=== PATIENT | female | born 1985 | race Caucasian/White ===

== ENCOUNTER 2017-12-19 13:00 | Inpatient (IN) ==
[2017-12-19] MEDS ORDERED: Naloxone 0.4 MG/ML INJ IVP PRN (13:38)
[2017-12-19] MEDS ORDERED: *HR* Nalbuphine 10 MG/ML AMPUL IVP PRN (13:38)
[2017-12-19] MEDS ORDERED: Famotidine 20 MG/2 ML VIAL IVP PRN (13:38)
[2017-12-19] MEDS ORDERED: Ringers Solution, Lactated 1,000 ML IVC SCH (13:45)
[2017-12-19] MEDS ORDERED: Oxytocin 20 units/ LR 1000 mL 20 UNIT/1,000 ML BAG IVC SCH (13:45)
--- NOTE | 2017-12-19 13:49 | OB/GYN History & Physical ---
Date of Encounter: 12/19/17 Time of Encounter: 13:46 History of Present Illness Chief complaint: 30+5wk IUFD HPI: Ms. Luna is a 32yo at 30+5wks GA who presents to [place] for IOL for diagnosed IUFD in office today. [facility] wtih Dr. Espinoza. Normal to date. Reported decreased FM over the weekend. Presented to office for US this AM, found to have no heart beat. Patient and FOB presented to office and discussed options. Desired to deliver as soon as possible, desires . H&P was performed by Dr. Espinoza in office and is in pateint chart. Hx of one miscarriage <12wks, and another at term ~10 years ago. VSS, HDS, afebrile. WIll plan for villareal/pitocin induction. Will discuss paperwork with patient. MD YUDELKA Medications and Allergies 3 Allergy/AdvReac Type Severity Reaction Status Date / Time No Known Allergies Allergy Verified 12/19/17 13:45 Results All other labs normal. - VTE Reasons for not Prescribing Prophylaxis: Treatment not Indicated - Low risk for VTE
[2017-12-19 14:01] LABS: Basophils % 0.2 %; Eosinophils # 0.2 K/mcL (0.0-0.6); Eosinophils % 2.2 %; Hematocrit 32.7 % (35.3-44.9); Hemoglobin 11.3 g/dL (11.5-15.4); Immature Granulocytes % 0.2 % (0-4); Lymphocytes # 1.5 K/mcL (0.6-4.6); Lymphocytes % 16.6 %; Mean Corpuscular HGB Conc 34.6 g/dL (31.6-35.5); Mean Corpuscular Volume 86.7 fL (83.0-100.0); Mean Platelet Volume 10.6 fL (9.4-12.4); Monocytes # 0.5 K/mcL (0.0-1.3); Monocytes % 5.2 %; Neutrophils # 6.9 K/mcL (1.6-8.9); Platelet Count 252 K/mcL (140-400); Red Blood Count 3.77 M/mcL (3.82-4.97); Red Cell Distribution Width 12.6 % (11.5-14.5); Segmented Neutrophils % 75.6 %
[2017-12-19] MEDS: Acetaminophen 325 MG TABLET PO ONE ×2 (14:55→20:00)
[2017-12-19 15:34] LABS: Amphetamine Screen,Urine Negative ng/mL (Cutoff=1000); Barbiturate Screen,Urine Negative ng/mL (Cutoff=200); Benzodiazepines Screen,Urine Negative ng/mL (Cutoff=200); Cannabinoid Screen,Urine Negative ng/mL (Cutoff = 50); Cocaine Screen,Urine Negative ng/mL (Cutoff= 300); Opiate Screen,Urine Negative ng/mL (Cutoff=300); Phencyclidine Screen,Urine Negative ng/mL (Cutoff=25)
[2017-12-19] MEDS ORDERED: miSOPROStol 25 MCG TABLET PO PRN (19:02)
[2017-12-19] MEDS ORDERED: Acetaminophen 325 MG TABLET PO ONE (19:51)
[2017-12-20] MEDS ORDERED: miSOPROStol 25 MCG TABLET PO ONE (00:18)
[2017-12-20] MEDS ORDERED: Acetaminophen 325 MG TABLET PO ONE (04:12)
--- NOTE | 2017-12-20 05:42 | Event Note ---
Date of Encounter: 12/20/17 Time of Encounter: 05:00 32yo at 30+6wks GA who presents for IOL for IUFD. Patient is now s/p two rounds of buccal misoprostol, and is now started on IV pitocin. SVE: ft/60/-2 Attempted cervical villareal placement however unable to be placed (external 1cm, internal is <FT). Will recheck patient in 2 hours and re-attempt villareal placement. Will continue with IV pitocin. Reassured patient and patient . Discussed autopsy versus home. Pastor Antonino Ngo (family friend) will be stopping by today to speak with both of them. Plan to recheck at 0730 for villareal placement. MD YUDELKA
--- NOTE | 2017-12-20 08:36 | Event Note ---
Date of Encounter: 12/20/17 Time of Encounter: 08:35 Robert placement at 0800, IN pitocin at 6mU Will continue to increase pit OK for regular diet. MD YUDELKA
--- NOTE | 2017-12-20 08:49 | Anesthesia Evaluation PreOp ---
Date of Encounter: 12/20/17 Time of Encounter: 07:19 - Past History Planned Operation: PETROS Cardiac History: Denies any Significant Hx Pulmonary History: Denies Any Significant HX TRAM DRIVER History: Denies Any Significant HX Other Medical History: Denies Any Significant HX Anesthesia History: No Prior Anesthetic Complications Alcohol Use: none Drug use: none Medications and Allergies Vitamins 1 / PO DAILY 12/19/17 [History] 3 Allergy/AdvReac Type Severity Reaction Status Date / Time No Known Allergies Allergy Verified 12/19/17 13:45 - Meds/Allergy Pre-op Review Medications Reviewed: Yes Allergies Reviewed: Yes Beta Blockers on Current Med List: No Anesthesia Results - Labs 12/19/17 13:42 Anesthesia Exam - HEENT Pupil (Motor): Pupils equal Mallampati: II Teeth: Normal Oral Opening: Greater than 3 - TRAM DRIVER LOC: Oriented TRAM DRIVER Motor: Normal RUE, Normal LUE, Normal RLE, Normal LLE, Normal Face TRAM DRIVER Sensory: Normal: RUE, LUE, RLE, LLE, Face - Cardiac Rhythm: Regular Murmur: None JVD: No Carotid Bruit: No - Pulmonary Breath Sounds: bilateral Clear Respiratory Effort: Symmetrical Anesthesia Assess/Plan ASA Score: 2 Modified [place] Scale for Level of Consciousness: Cooperative, oriented, and tranquil Anesthetic Plan: Regional Autologous Blood: No Monitoring Plan: Standard Monitors Anes Supervising Prov Stmt: 0719 pt assessment completed. risks benefits explained for PETROS pt agrees. unsure if she will desire epidural, however consent obtained at this time.
[2017-12-20] MEDS ORDERED: Epidural Premix (fent/bupiv) 110 ML EP SCH (09:45)
[2017-12-20] MEDS ORDERED: Lidocaine -MPF 1% 5 ML AMPUL ONE (14:54)
[2017-12-20] MEDS ORDERED: Bupivacaine-MPF 0.25% 10 ML VIAL ONE (14:54)
--- NOTE | 2017-12-20 15:51 | Anesthesia Procedures ---
Date of Encounter: 12/20/17 Time of Encounter: 15:00 Procedures: Anesthesia - Epidural/Spinal Patient ID/Chart reviewed: Yes Patient examined: Yes OB Eval: Gestational age: 30 week Demise OB Eval: : 3 OB Eval: Hx Para: 1 OB Eval: Dilated at (cm): 3 OB Eval: Contractions: Non-stressed pattern Consent Obtained: Yes Supplemental Oxygen: None/Room Air Patient position: upright Local Anesthetic: Lidocaine 1% Touhy Needle Gauge: 19 Touhy Needle Depth (cm): 4 Catheter Depth at Skin (cm): 4 Loading Dose: 0.25% Marcaine (mls): 10 Loading Dose Administered: Thru Touhy Needle Infusion Med: 0.125% Bupivacaine w/ 2 mcg/ml Fentanyl Infusion Rate (mls/hr): [address]: Tegaderm Interspace Used: L4-L5 Loss of Resistance (WHIT): Yes Blood: No CSF: No Paresthesia: No
[2017-12-20] MEDS ORDERED: Lidocaine/EPI 1:200k 2% PF 20 ML VIAL ONE (17:48)
--- NOTE | 2017-12-20 19:30 | OB Labor Progress Note ---
Date of Encounter: 12/20/17 Time of Encounter: 19:29 Labor Progress Note - Subjective Subjective: Pt comfortable with epidural - Cervix Cervix: 5-6/90/-2 - Heart Tones Heart Tones: absent - Interventions Interventions: AROM blood tinged fluid - Plan Plan: Expect
[2017-12-20] MEDS ORDERED: Ondansetron 4 MG/2 ML VIAL ONE (20:47)
--- NOTE | 2017-12-20 21:02 | Event Note ---
Date of Encounter: 12/20/17 Time of Encounter: 20:30 At bedside to evaluate patient s/p of 30+6wk GA IUFD. Baby was delivered rapidly following AROM where patient progressed from 5-6CM/BBOW, to 10cm with the urge to push. Placenta was left in place and intact while patient was able to console her baby. Patient felt cramping and felt very nauseated. As we re-prepped the bed for delivery of the placenta, the patient delivered the placenta spontaneously after one aggressive cough. The placenta was grossly examined, with normal cord insertion. Cotyledons were intact, no abruption was appreciated. Cord appeared normal, despite its long length. Cord was with 3 vessels. I then cautiously performed a bimanual examination, no lesion(S) were appreciated from delivery. Minimal clots were removed from the fundus. A subsequent TAUS was performed to confirm no products of conception were retained. The TAUS revealed a thinned cavity and normal fundus. Placenta is to be sent to pathology for evaluation: diagnosis being 30wk IUFD. MD YUDELKA
--- NOTE | 2017-12-20 23:15 | OB/GYN Procedure Note ---
Delivery - Delivery Date: 12/20/17 Provider: Thad Plascencia Intrapartum events: demise Delivery induction: misoprostol Delivery augmentation: rupture of membranes, pitocin Delivery monitor: external uterine Anesthesia: epidural Quantitated Blood Loss: 50 - (s) A Delivery Date: 12/20/17 Delivery Time: 19:49 Gender: Male Viability: Nonviable Weight Gram: 1.55 kg at 1 minute: 0 at 5 mins: 0 Shoulder Dystocia: not encountered Placenta: spontaneous - Repair Laceration Description: None - Disposition Mom disposition: stable in LDR - Comments Comments: Patient is status post precipitous delivery of demise at 31 weeks gestation from vertex presentation. Infant was delivered without incident over intact perineum. There were no obvious anomalies and was confirmed to be male. Specifically there was no evidence of cord accident. Perineum was intact. Estimated blood loss 50 mL. Attempt Tomei departed room mother was stable with minimal bleeding placenta remained intact within the uterus.
[2017-12-20] MEDS ORDERED: Acetaminophen 325 MG TABLET PO PRN (23:18)
[2017-12-20] MEDS ORDERED: Measles/Mumps/Rubella Vacc 0.5 ML VIAL SQ PRN (23:18)
[2017-12-20] MEDS ORDERED: Oxytocin 20 units/ LR 1000 mL 20 UNIT/1,000 ML BAG IVC SCH (23:30)
[2017-12-21] MEDS: Ibuprofen 600 MG TABLET PO PRN ×2 (00:28→11:46)
[2017-12-21 07:00] LABS: Basophils % 0.2 %; Eosinophils # 0.1 K/mcL (0.0-0.6); Eosinophils % 0.9 %; Hematocrit 29.8 % (35.3-44.9); Immature Granulocytes % 0.4 % (0-4); Lymphocytes % 14.3 %; Mean Corpuscular HGB Conc 33.6 g/dL (31.6-35.5); Mean Corpuscular Hemoglobin 29.8 pg (28.0-33.3); Mean Corpuscular Volume 88.7 fL (83.0-100.0); Mean Platelet Volume 10.9 fL (9.4-12.4); Monocytes # 0.7 K/mcL (0.0-1.3); Monocytes % 5.1 %; Neutrophils # 11.1 K/mcL (1.6-8.9); Platelet Count 217 K/mcL (140-400); Red Blood Count 3.36 M/mcL (3.82-4.97); Red Cell Distribution Width 12.7 % (11.5-14.5); Segmented Neutrophils % 79.1 %
[2017-12-21] MEDS ORDERED: Prenatal Vit/FA 1 EACH TABLET PO SCH (09:00)
[2017-12-21 10:57] VITALS: BP 116/78
--- NOTE | 2017-12-21 11:59 | Discharge Summary ---
Date of Encounter: 12/21/17 Time of Encounter: 11:00 - Discharge Medications Prescriptions: Ondansetron ODT [Zofran ODT] 4 mg PO Q8HR PRN #20 tab.rapdis PRN Reason: Nausea Docusate [Colace] 100 mg PO BID #60 capsule Ibuprofen 200 mg PO Q4-6H PRN #60 tablet PRN Reason: cramp Home Medications: Vitamins 1 / PO DAILY 12/19/17 [History] Docusate [Colace] 100 mg PO BID #60 capsule 12/21/17 [Rx] Ibuprofen 200 mg PO Q4-6H PRN #60 tablet 12/21/17 [Rx] Ondansetron ODT [Zofran ODT] 4 mg PO Q8HR PRN #20 tab.rapdis 12/21/17 [Rx] Allergies/Adverse Reactions: 3 Allergy/AdvReac Type Severity Reaction Status Date / Time No Known Allergies Allergy Verified 12/19/17 13:45 Data Procedures and tests throughout hospitalization: Laboratory Tests 12/19/17 12/19/17 12/19/17 13:40 13:42 14:55 WBC 9.2 RBC 3.77 L Hgb 11.3 L Hct 32.7 L MCV 86.7 MCH 30.0 MCHC 34.6 RDW 12.6 Plt Count 252 MPV 10.6 Immature Gran % 0.2 Seg Neutrophils % 75.6 Lymphocytes % 16.6 Monocytes % 5.2 Eosinophils % 2.2 Basophils % 0.2 Neutrophils # 6.9 Lymphocytes # 1.5 Monocytes # 0.5 Eosinophils # 0.2 Basophils # 0.0 Urine Opiates Screen Negative Ur Barbiturates Screen Negative Ur Phencyclidine Scrn Negative Ur Amphetamines Screen Negative U Benzodiazepines Scrn Negative Urine Cocaine Screen Negative U Marijuana (THC) Screen Negative Ur Drug Screen Interp See Below Blood Type O POSITIVE 12/21/17 06:19 WBC 14.0 H D RBC 3.36 L Hgb 10.0 L Hct 29.8 L MCV 88.7 MCH 29.8 MCHC 33.6 RDW 12.7 Plt Count 217 MPV 10.9 Immature Gran % 0.4 Seg Neutrophils % 79.1 Lymphocytes % 14.3 Monocytes % 5.1 Eosinophils % 0.9 Basophils % 0.2 Neutrophils # 11.1 H Lymphocytes # 2.0 Monocytes # 0.7 Eosinophils # 0.1 Basophils # 0.0 Urine Opiates Screen Ur Barbiturates Screen Ur Phencyclidine Scrn Ur Amphetamines Screen U Benzodiazepines Scrn Urine Cocaine Screen U Marijuana (THC) Screen Ur Drug Screen Interp Blood Type Labs on day of discharge: Labs from last 24 hours 12/21/17 06:19 WBC 14.0 H D RBC 3.36 L Hgb 10.0 L Hct 29.8 L MCV 88.7 MCH 29.8 MCHC 33.6 RDW 12.7 Plt Count 217 MPV 10.9 Immature Gran % 0.4 Seg Neutrophils % 79.1 Lymphocytes % 14.3 Monocytes % 5.1 Eosinophils % 0.9 Basophils % 0.2 Neutrophils # 11.1 H Lymphocytes # 2.0 Monocytes # 0.7 Eosinophils # 0.1 Basophils # 0.0 Date of admission: 12/19/17 13:19 Primary care physician: Dee Christine MD Consults: 12/20/17 23:18 Consult to Pattern Puncher [CONS] Routine (Cancelled) Comment: Vaginal delivery, consult needed Discharging clinician: Ana Gomez Anticipated date of discharge: 12/21/17 - Patient Status Disposition: Home, Self-Care Condition: Good Functional capacity at discharge: independent ambulation Overall status at discharge: patient is progressing back to baseline - Discharge Instructions Instructions: Depression (GEN), Perineal Care (GEN) Follow Up With: Dee Christine MD [Primary Care Provider] - - Diet and Activity Activity: resume usual activities as tolerated Diet: advance to your usual diet 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 Attestation: Total time spent providing and/or coordinating discharge services: Exam - Constitutional Vitals: Temp Pulse Resp BP Pulse Ox 98.3 F 82 16 116/78 98 12/21/17 09:50 12/21/17 09:50 12/21/17 09:50 12/21/17 09:50 12/21/17 04:33 General appearance IM: A&O X 3, pleasant, no acute distress - Respiratory Respiratory exam: Present: CTAB - Cardiovascular Cardiovascular exam IM: Present: RRR - GI/Abdominal GI/Abdominal exam IM: normal bowel sounds, no peritoneal signs - Rectal Rectal exam: deferred - Uterine Tone: Firm Uterus Position: 2 Fingers Below Umbilicus - Extremities Exam Extremities exam IM: Present: radial pulses palpable and symmetrical - VTE Reasons for not Prescribing Prophylaxis: Treatment not Indicated - Low risk for VTE Documentation of Mechanical Device: Intermittent pneumatic compression device Deep Vein Thrombosis/Pulmonary Embolism Present on Admission: No - Attending Attestation +Dr. Gomez was present at the time of discharge, as the patient was DC'd to home on PPD#1 s/p at 30+6wks GA for an IUFD. Patient was admitted to L&D on 12/19/2017 for an IOL for a diagnosed IUFD at 30+ 5wks GA. The patient reported decreased FM over the weekend and presented to her [facility] on Tuesday and was found to have IUFD. She was sent to [facility] for an IOL. She required two buccal misoprostols, and was then started on IV pitocin. Early AM on 12/20, a cervical villareal catheter was placed, and we continued the patient on IV pitocin. The cervical villareal was then spontaneously removed, at which point we continued the pitocin. At 5-6cm/BBOW, the patient was AROM'd, and within 20minutes following AROM - the patient was complete with the urge to push. The patient delivered within 4 contractions, as the placenta remained inutero while she was able to console her baby with her . Within 30 minutes, we then delivered the placenta. Placenta was sent to pathology for further evaluation. Upon examination of her perineum, there were no lesion(S) noted. A TAUS was then performed confirming no retained products of conception. The patient was given information later that evening and early AM the following morning regarding plans for the baby boy. They decided to forego an autopsy and move forward with a burial at a local home. The patient was discharged to HOME the morning of 12/21 with f/u schedule on January 17, at 1000. MD MARYA JHA
== END 2017-12-21 12:25 | disposition home or self-care (01) | DRG 560 ==
LOC: 1NENULAB 13:19 → 1NENUOBS 12-20 23:26
PROVIDERS: ADMIT Student in an Organized Health Care Education/Training Program; ATTEND Student in an Organized Health Care Education/Training Program

== ENCOUNTER 2018-11-29 16:11 | Observation (INO) ==
[2018-11-29 16:51] LABS: Bilirubin,Urine Negative (Negative); Blood,Urine Negative (Negative); Clarity,Urine Cloudy (Clear); Color,Urine Yellow (Yellow); Glucose,Urine (UA) Normal (Normal); Ketones,Urine Negative (Negative); Leukocyte Esterase,Urine Small (Negative); Nitrite,Urine Negative (Negative); PH,Urine 6.5 pH Units (5.0-8.0); Protein,Urine Negative (Neg-Trace); Specific Gravity,Urine 1.009 (1.010-1.025); Urobilinogen,Urine Normal (Normal)
[2018-11-29 16:56] LABS: Bacteria,Urine None Seen per hpf (None-Few); Hyaline Casts,Urine None Seen per lpf (None-Few); RBC,Urine 0-3 per hpf (0-3); Squamous Epithelial Cell,Urine Many per lpf (None-Few)
[2018-11-29 16:57] LABS: Amphetamine Screen,Urine Negative ng/mL (Cutoff=1000); Barbiturate Screen,Urine Negative ng/mL (Cutoff=200); Benzodiazepines Screen,Urine Negative ng/mL (Cutoff=200); Cannabinoid Screen,Urine Negative ng/mL (Cutoff = 50); Cocaine Screen,Urine Negative ng/mL (Cutoff= 300); Opiate Screen,Urine Negative ng/mL (Cutoff=300); Phencyclidine Screen,Urine Negative ng/mL (Cutoff=25)
--- NOTE | 2018-11-29 19:20 | Discharge Summary ---
Date of Encounter: 11/29/18 Time of Encounter: 19:25 - Discharge Diagnosis (1) 37 weeks gestation of Priority: Primary Status: Acute Comments: Admit to observation for complaint of UTI type symptoms, back pain, frequency. (2) Vaginal discharge during in third trimester Priority: Secondary Status: Acute Comments: Patient reports discharge off and on for several weeks. Some yellow/green discharge on glove with SVE Vaginosis panel collected and results are pending at time of note. Will treat appropriately for any positive results. (3) Anxiety during in third trimester, antepartum Priority: Secondary Status: Acute Comments: Patient reports history of anxiety prior to that was treated with medications She previously had a 3rd trimester IUFD and expresses constant worry about this and outcome. She also reports her 11 year old was suspended from school today and she is having some marital issues. Will prescribe Vistaril prn for anxiety and sleep aid (4) Gestational diabetes Priority: Secondary Status: Acute Comments: Continue Metformin as prescribed Continue blood sugar monitoring as ordered by OB provider. Qualifiers: Gestational diabetes mellitus control: oral hypoglycemic-controlled Trimester: third trimester Qualified Code(s): O24.415 - Gestational diabetes mellitus in , controlled by oral hypoglycemic drugs (5) NST (non-stress test) reactive Priority: Secondary Status: Acute Comments: FHR 140 bpm, moderate variability, +15x15 accels, no decels. (6) History of IUFD Priority: Secondary Status: Acute Comments: 30 wk IUFD in December 2017 - Discharge Medications Prescriptions: New hydrOXYzine pamoate [Vistaril] 25 mg PO Q6H PRN #30 capsule PRN Reason: Anxiety Continued Vitamins 1 tab PO DAILY metFORMIN 500 mg PO DAILY Home Medications: Vitamins 1 tab PO DAILY 12/19/17 [History] metFORMIN 500 mg PO DAILY 11/27/18 [History] hydrOXYzine pamoate [Vistaril] 25 mg PO Q6H PRN #30 capsule 11/29/18 [Rx] Allergies/Adverse Reactions: Allergy/AdvReac Type Severity Reaction Status Date / Time No Known Allergies Allergy Verified 12/19/17 13:45 Data Procedures and tests throughout hospitalization: Laboratory Tests 11/29/18 11/29/18 16:30 16:32 Urine Color Yellow Urine Clarity Cloudy A Urine pH 6.5 Ur Specific [place] 1.009 L Urine Protein Negative Urine Glucose (UA) Normal Urine Ketones Negative Urine Blood Negative Urine Nitrite Negative Urine Bilirubin Negative Urine Urobilinogen Normal Ur Leukocyte Esterase Small H Urine Microscopic RBC 0-3 Urine Microscopic WBC 3-5 H Ur Squamous Epith Cells Many H Urine Bacteria None Seen Hyaline Casts None Seen Ur Culture Indicated? YES A Urine Opiates Screen Negative Ur Buprenorphine Scrn Negative Ur Barbiturates Screen Negative Ur Phencyclidine Scrn Negative Ur Amphetamines Screen Negative U Benzodiazepines Scrn Negative Urine Cocaine Screen Negative U Marijuana (THC) Screen Negative Ur Drug Screen Interp See Below Labs on day of discharge: Labs from last 24 hours 11/29/18 11/29/18 16:32 16:30 Urine Color Yellow Urine Clarity Cloudy A Urine pH 6.5 Ur Specific [place] 1.009 L Urine Protein Negative Urine Glucose (UA) Normal Urine Ketones Negative Urine Blood Negative Urine Nitrite Negative Urine Bilirubin Negative Urine Urobilinogen Normal Ur Leukocyte Esterase Small H Urine Microscopic RBC 0-3 Urine Microscopic WBC 3-5 H Ur Squamous Epith Cells Many H Urine Bacteria None Seen Hyaline Casts None Seen Ur Culture Indicated? YES A Urine Opiates Screen Negative Ur Buprenorphine Scrn Negative Ur Barbiturates Screen Negative Ur Phencyclidine Scrn Negative Ur Amphetamines Screen Negative U Benzodiazepines Scrn Negative Urine Cocaine Screen Negative U Marijuana (THC) Screen Negative Ur Drug Screen Interp See Below Date of admission: 11/29/18 16:11 Primary care physician: PCP ALISTAIR Discharging clinician: Radha Rubio Anticipated date of discharge: 11/29/18 - Patient Status Disposition: Home, Self-Care Condition: Good Functional capacity at discharge: independent ambulation Overall status at discharge: patient is progressing back to baseline - Discharge Instructions Follow Up With: NONE,PCP [Primary Care Provider] - Mya Lemus DO [Partnered Physician] - Additional Instructions: LABOR AND DELIVERY DISCHARGE INSTRUCTIONS Signs and Symptoms to be Reported to your Doctor Immediately: * Sudden gush, continuous or intermittent lead of fluid from vagina (note the time of gush and color of fluid) * Onset of bright red vaginal bleeding with or without pain (if you had a vaginal exam during this visit you may notice some dark red spotting. This is normal.) * Contractions that are 5 minutes apart (from the beginning of one contraction to the beginning of the next) and last 45-60 seonds; contractions that you can no longer walk, talk or laugh through. * A change in the baby's activity. This could be an increase or decrease in activity. * Severe headache which does not go away with tylenol. * Sudden swelling in the face, hands, arms and/or legs. * Upper abdominal pain - sometimes associated with heartburn or nausea and is not relieved by Maalox, Mylanta or Tums. * Kick Counts __ One hour after a meal, lay down on one side in a quiet place. Count the number of time the baby moves during an hour. 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 She also reports some vaginal discharge. She reports positive movement, denies vaginal bleeding and watery discharge. She reports infrequent contractions, back pain, and slight suprapubic pain. UA was completed and returned normal, vaginosis panel was collected and is pending at time of note. SVE completed, 1- 2cm/thick/high which is unchanged from previous exam 2 days ago. NST reactive with irregular contractions noted. Previous IUFD at 30 weeks in December of 2017. Discussed patient's anxiety symptoms at length and she does plan to have medication therapy . Suggested she consider counseling to help with her anxiety and she states she did try that in the past. Discussed using Vistaril to help her anxiety and her sleep patterns at this time and she is agreeable to try that so RX sent to patient's pharmacy. She is to follow up with Dr. eLmus as scheduled for routine visit. She will be notified if vaginosis panel returns positive. Time Attestation: Total time spent providing and/or coordinating discharge services: Time Spent: Less than 30 minutes Exam - Constitutional General appearance IM: A&O X 3, pleasant, no acute distress, answers questions appropriately - Respiratory Respiratory exam: Present: CTAB - Cardiovascular Cardiovascular exam IM: Present: RRR, +S1, +S2 - GI/Abdominal GI/Abdominal exam IM: normal bowel sounds, soft - Rectal Rectal exam: deferred - External exam: normal external exam - Extremities Exam Extremities exam IM: Present: full ROM, normal capillary refill, normal inspection - Neurological Exam Neurological exam: alert, normal gait, oriented X3 - VTE Reasons for not Prescribing Prophylaxis: Treatment not Indicated - Low risk for VTE
[2018-11-29 22:41] LABS: Candida DNA Not Detected (Not Detect); Gardnerella DNA Not Detected (Not Detect); Trichomonas DNA Not Detected (Not Detect)
== END 2018-11-29 19:20 | disposition home or self-care (01) ==
LOC: 1NENULAB
PROVIDERS: ADMIT Registered Nurse; ATTEND Registered Nurse

== ENCOUNTER 2018-12-11 23:00 | Inpatient (IN) ==
[2018-12-11] MEDS ORDERED: Famotidine 20 MG/2 ML VIAL IVP PRN (23:15)
[2018-12-11] MEDS ORDERED: *HR* Nalbuphine 10 MG/ML AMPUL IVP PRN (23:15)
[2018-12-11] MEDS ORDERED: Ringers Solution, Lactated 1,000 ML IVC SCH (23:15)
[2018-12-11] MEDS ORDERED: Metoclopramide 10 MG/2 ML VIAL IVP PRN (23:15)
[2018-12-11] MEDS ORDERED: Mag Hydrox/Al Hydrox/Simeth 30 ML UDC PO PRN (23:43)
[2018-12-11 23:48] LABS: Basophils % 0.2 %; Eosinophils # 0.3 K/mcL (0.0-0.6); Eosinophils % 3.1 %; Hematocrit 32.7 % (35.3-44.9); Hemoglobin 10.5 g/dL (11.5-15.4); Immature Granulocytes % 0.3 % (0-4); Lymphocytes # 1.8 K/mcL (0.6-4.6); Lymphocytes % 20.8 %; Mean Corpuscular HGB Conc 32.1 g/dL (31.6-35.5); Mean Corpuscular Hemoglobin 27.3 pg (28.0-33.3); Mean Corpuscular Volume 84.9 fL (83.0-100.0); Mean Platelet Volume 10.8 fL (9.4-12.4); Monocytes # 0.6 K/mcL (0.0-1.3); Monocytes % 6.5 %; Neutrophils # 5.9 K/mcL (1.6-8.9); Platelet Count 245 K/mcL (140-400); Red Blood Count 3.85 M/mcL (3.82-4.97); Red Cell Distribution Width 13.3 % (11.5-14.5); Segmented Neutrophils % 69.1 %; White Blood Count 8.6 K/mcL (4.3-11.1)
[2018-12-11 23:54] LABS: Amphetamine Screen,Urine Negative ng/mL (Cutoff=1000); Barbiturate Screen,Urine Negative ng/mL (Cutoff=200); Benzodiazepines Screen,Urine Negative ng/mL (Cutoff=200); Cannabinoid Screen,Urine Negative ng/mL (Cutoff = 50); Cocaine Screen,Urine Negative ng/mL (Cutoff= 300); Opiate Screen,Urine Negative ng/mL (Cutoff=300); Phencyclidine Screen,Urine Negative ng/mL (Cutoff=25)
[2018-12-12] MEDS ORDERED: Oxytocin 20 units/ LR 1000 mL 20 UNIT/1,000 ML BAG IVC ONE ×2 (00:18→14:38)
[2018-12-12] MEDS ORDERED: Oxytocin 20 units/ LR 1000 mL 20 UNIT/1,000 ML BAG IVC SCH ×2 (00:30→14:38)
--- NOTE | 2018-12-12 01:05 | OB/GYN History & Physical ---
Date of Encounter: 12/12/18 Time of Encounter: 01:02 Assessment and Plan (1) 39 weeks gestation of Current visit: Yes Status: Acute Pitocin with EFM in anticipation of a vaginal delivery. Patient is requesting epidural to be placed prior to amniotomy. (2) Advanced maternal age during in third trimester Current visit: Yes Status: Acute (3) Gestational diabetes Current visit: No Status: Acute Qualifiers: Gestational diabetes mellitus control: oral hypoglycemic-controlled Trimester: third trimester Qualified Code(s): O24.415 - Gestational diabetes mellitus in , controlled by oral hypoglycemic drugs (4) History of IUFD Current visit: Yes Status: Acute History of Present Illness Chief complaint: induction of labor at 39 weeks HPI: Ms. Luna is a 33 year old female G 4 P 1-1-0-1 at 39 0/7 weeks presents to labor and delivery for induction of labor at term. She states her contractions have gotten more intense. She denies any leaking fluid or vaginal bleeding. She reports good movement. Her has been complicated by history of IUFD last year, GDM A2 on metformin, and AMA Blood type O+ Rubella non immune varicella immune GBS negative Past Med Surg Social Fam HX - Past Medical History Source: patient Medical history: no medical history Additional medical history: kidney stones, PCOS Psychiatric history: anxiety, depression - Past Surgical History Surgical History: cholecystectomy Additional surgical history: tonsils - Social History Smoking Status: Never smoker Smokeless Tobacco Status: No Alcohol use: none Drug use: none - Family History Mother Adopted: No Living Status: Still Living Hx Family Cardiac Disorders: No Hx Family Respiratory Disorders: No Hx Family Cancer: No Hx Family GI Disorders: No Hx Family Endocrine Disorder: No Hx Family Neuromuscular Disorders: No Hx Family Neurologic Disorders: No Hx Family HEENT Disorders: No Hx Family Autoimmune Disorders: No Obstetrical History - Pregnancies : 4 Para: 1 Term: 1 : 1 Ab's: 1 Livin - History/Complications History/Complications: IUFD at 30 weeks 12/2017 Medications and Allergies Vitamins 1 tab PO DAILY 12/19/17 [History] metFORMIN 500 mg PO DAILY 11/27/18 [History] Allergy/AdvReac Type Severity Reaction Status Date / Time No Known Allergies Allergy Verified 12/19/17 13:45 Review of System OB All systems PM: reviewed and no additional remarkable complaints except as stated - Constitutional Constitutional ROS IM: fatigue, no chills, no fever(s) - Cardiovascular Cardiovascular: no chest pain with activity - Respiratory Respiratory: no dyspnea on exertion - Gastrointestinal Gastrointestinal: no constipation, no nausea, no vomiting - Menstruation Menstruation: amenorrhea Exam - Constitutional Constitutional: well developed, well nourished, no acute distress, average body habitus - HEENT HEENT: EOMI, Normocephaly, Mucus Membranes Moist - Lungs Respiratory exam: CTAB - Cardiovascular Cardiovascular exam: RRR - Abdomen Abdomen: Present: bowel sounds normal, gravid, non tender - Vulva Vulva: bilateral: normal - Vagina Vagina: Present: normal moisture - Cervix Dilation: 4 (cephalic) Effacement: 80 Station: -2 - Comments Comments: 130's with accels, category 1. Contractions q 3-4 minutes Results Result Diagrams: 12/11/18 23:20 Abnormal lab results Hgb 10.5 g/dL (11.5-15.4) L 12/11/18 23:20 Hct 32.7 % (35.3-44.9) L 12/11/18 23:20 MCH 27.3 pg (28.0-33.3) L 12/11/18 23:20 All other labs normal. US - abdomen: image reviewed (EFW 3572 gm (7lb 14 oz) on 12/08/2018 with ALEXANDRE 22 cm) - VTE Reasons for not Prescribing Prophylaxis: Treatment not Indicated - Low risk for VTE
[2018-12-12] MEDS ORDERED: Epidural Premix (fent/bupiv) 110 ML EP SCH (01:30)
--- NOTE | 2018-12-12 02:41 | Anesthesia Evaluation PreOp ---
Date of Encounter: 12/12/18 Time of Encounter: 01:30 - Past History Planned Operation: PETROS Cardiac History: Denies any Significant Hx Pulmonary History: Denies Any Significant HX BARBER History: Denies Any Significant HX Other Medical History: Other (GESTATIONAL DIABETES) Anesthesia History: No Prior Anesthetic Complications : Yes Test: Positive Alcohol Use: none Drug use: none Medications and Allergies Vitamins 1 tab PO DAILY 12/19/17 [History] metFORMIN 500 mg PO DAILY 11/27/18 [History] Allergy/AdvReac Type Severity Reaction Status Date / Time No Known Allergies Allergy Verified 12/19/17 13:45 - Meds/Allergy Pre-op Review Medications Reviewed: Yes Allergies Reviewed: Yes Beta Blockers on Current Med List: No Anesthesia Results - Labs 12/11/18 23:20 Anesthesia Exam - HEENT Pupil (Motor): Pupils equal Mallampati: II Teeth: Normal Oral Opening: Greater than 3 - BARBER LOC: Oriented BARBER Motor: Normal RUE, Normal LUE, Normal RLE, Normal LLE, Normal Face BARBER Sensory: Normal: RUE, LUE, RLE, LLE, Face - Cardiac Rhythm: Regular Murmur: None JVD: No Carotid Bruit: No - Pulmonary Breath Sounds: bilateral Clear Respiratory Effort: Symmetrical Anesthesia Assess/Plan ASA Score: 2 Level of consciousness: Cooperative Anesthetic Plan: Epidural
--- NOTE | 2018-12-12 02:45 | Anesthesia Procedures ---
Date of Encounter: 12/12/18 Time of Encounter: 01:30 Procedures: Anesthesia - Epidural/Spinal Patient ID/Chart reviewed: Yes Patient examined: Yes OB Eval: Gestational age: 37 OB Eval: : 4 OB Eval: Hx Para: 1 OB Eval: Dilated at (cm): 4 OB Eval: Contractions: Non-stressed pattern Consent Obtained: Yes Site Prep: Aseptic Technique, Sterile prep and drape, Povidone-Iodine 1% Patient position: upright Amount of Local Anesthetic used: 3 Touhy Needle Gauge: 18 Touhy Needle Depth (cm): 6 Catheter Depth at Skin (cm): 8 Test Dose (1.5% Lido + Epi): Volume given (mls): 3 Test Dose Result: Negative Loading Dose: 0.25% Marcaine (mls): 10 Loading Dose Administered: Thru Catheter Infusion Rate (mls/hr): [address]: Tegaderm, Tape Interspace Used: L4-L5 Loss of Resistance (WHIT): Yes Blood: No CSF: No Paresthesia: No Procedure: strict asepsis, first attempt, tolerated with no complications. FHTS VSS throughout
[2018-12-12] MEDS ORDERED: Ropivacaine /PF 1% 100 MG/10 ML VIAL ONE ×2 (02:58→06:29)
--- NOTE | 2018-12-12 05:21 | OB Labor Progress Note ---
Date of Encounter: 12/12/18 Time of Encounter: 05:19 Labor Progress Note - Subjective Subjective: Patient is comfortable after the epidural and only complains of vaginal pressure - Cervix Cervix: 5/80/-2 cephalic with bulging bag of water - Heart Tones Heart Tones: 130's, category 1 FHR tracing - [place]: q 2-5 minutes - Interventions Interventions: AROM with large amount of clear fluid - Plan Plan: Continue pitocin induction with anticipation of a vaginal delivery
[2018-12-12] MEDS ORDERED: Ondansetron 4 MG/2 ML VIAL ONE (07:18)
[2018-12-12] MEDS ORDERED: *HR* FentaNYL (PF) 100 MCG/2 ML VIAL ONE (07:27)
[2018-12-12] MEDS ORDERED: Bupivacaine-MPF 0.25% 10 ML VIAL ONE (07:27)
--- NOTE | 2018-12-12 09:08 | Anesthesia Procedures ---
Date of Encounter: 12/12/18 Time of Encounter: 07:30 (procedure end time 08) Procedures: Anesthesia - Epidural/Spinal Patient ID/Chart reviewed: Yes Patient examined: Yes OB Eval: Contractions: Non-stressed pattern Consent Obtained: Yes Supplemental Oxygen: None/Room Air Site Prep: Aseptic Technique Patient position: upright Local Anesthetic: Lidocaine 1% Amount of Local Anesthetic used: 3 Touhy Needle Gauge: 18 Touhy Needle Depth (cm): 8 Catheter Depth at Skin (cm): 13 Test Dose (1.5% Lido + Epi): Volume given (mls): 3 Test Dose Result: Negative Loading Dose: Fentanyl (mcg): 100 Loading Dose: Other: 5ml 0.2% ropivicaine Loading Dose Administered: Thru Touhy Needle Infusion Med: 0.125% Bupivacaine w/ 2 mcg/ml Fentanyl Infusion Rate (mls/hr): [address]: Tegaderm Interspace Used: L3-L4 Blood: No CSF: No Paresthesia: No Procedure: Called to room for pain 10/10 with contractions. Epidural catheter intact and infusing but she is experiencing no relief. After explanation of risks/benefits, Epidural removed and a new catheter inserted. Strict asepsis, one attempt.
--- NOTE | 2018-12-12 10:54 | OB/GYN Procedure Note ---
Delivery - Delivery Date: 12/12/18 Provider: Mya Lemus Intrapartum events: none Delivery induction: AROM, oxytocin Delivery monitor: external FHT, external uterine Anesthesia: epidural Quantitated Blood Loss: 200 - Infant (s) Infant A Delivery Date: 12/12/18 Infant Delivery Time: 10:31 Presentation: vertex Position: OA Route of delivery: Gender: Male Viability: Viable Pounds: 8 Ounces: 5 at 1 minute: 8 at 5 mins: 9 Shoulder Dystocia: not encountered Specimens collected: cord blood Placenta: spontaneous Cord: nuchal cord, 3 umbilical vessels, nuchal reduced - Repair Episiotomy: none Laceration Description: Superficial (right labial) - Complications Delivery complications: none Delivery comments: Called to room with patient complete and +2 station. Under maternal effort she delivered a viable male weighing 8 lbs. 5 oz. and Apgars 8 and 9 at one and 5 minutes respectively over an intact perineum. Following delivery of the head there was a nuchal cord noted that was reduced without difficulty. The shoulders and body delivered with maternal effort. Infant was placed on mom's abdomen. Cord was allowed to cease pulsations, and then was clamped and cut with assistance from the father. Cord blood was collected. Placenta delivered spontaneously, complete, and intact with a three-vessel cord. There was a superficial right labial laceration noted that was hemostatic without repair. No perineal or vaginal lacerations noted on exam. Mother and infant recovering in the LDR in stable condition. - Disposition Mom disposition: stable in LDR disposition: stable in LDR
[2018-12-12] MEDS ORDERED: Measles/Mumps/Rubella Vacc 0.5 ML VIAL SQ PRN (14:38)
[2018-12-12] MEDS ORDERED: Acetaminophen 325 MG TABLET PO PRN (14:38)
[2018-12-12] MEDS: Ibuprofen 600 MG TABLET PO PRN (15:06)
[2018-12-13] MEDS: Ibuprofen 600 MG TABLET PO PRN ×2 (08:30→15:28)
[2018-12-13 08:39] VITALS: BP 117/75
[2018-12-13] MEDS ORDERED: Prenatal Vit/FA 1 EACH TABLET PO SCH (09:00)
--- NOTE | 2018-12-13 13:51 | Discharge Summary ---
Date of Encounter: 12/13/18 Time of Encounter: 13:46 - Discharge Diagnosis (1) Vaginal delivery Priority: Primary Status: Acute Comments: Patient meeting day one milestones. Pain well-controlled with prescribed medications. Voiding without difficulty, tolerating regular diet, bleeding light. No bowel movement yet. Anticipate discharge today to guest status (2) Breast feeding status of mother Priority: Secondary Status: Acute Comments: support as needed. (3) Gestational diabetes Priority: Secondary Status: Acute Comments: Follow-up in 4-12 weeks for 2 hour GTT Qualifiers: Gestational diabetes mellitus control: oral hypoglycemic-controlled Trimester: third trimester Qualified Code(s): O24.415 - Gestational diabetes mellitus in , controlled by oral hypoglycemic drugs - Discharge Medications Prescriptions: New Ibuprofen [Motrin] 600 mg PO Q6HR PRN #60 tablet PRN Reason: Cramping Acetaminophen [Tylenol] 650 mg PO Q6HR PRN tablet PRN Reason: Mild Pain Continued Vitamins 1 tab PO DAILY Discontinued metFORMIN 500 mg PO DAILY Home Medications: Vitamins 1 tab PO DAILY 12/19/17 [History] Acetaminophen [Tylenol] 650 mg PO Q6HR PRN tablet 12/13/18 [Rx] Ibuprofen [Motrin] 600 mg PO Q6HR PRN #60 tablet 12/13/18 [Rx] Allergies/Adverse Reactions: Allergy/AdvReac Type Severity Reaction Status Date / Time No Known Allergies Allergy Verified 12/19/17 13:45 Data Procedures and tests throughout hospitalization: Laboratory Tests 12/11/18 12/11/18 23:20 23:20 WBC 8.6 RBC 3.85 Hgb 10.5 L Hct 32.7 L MCV 84.9 MCH 27.3 L MCHC 32.1 RDW 13.3 Plt Count 245 MPV 10.8 Immature Gran % 0.3 Seg Neutrophils % 69.1 Lymphocytes % 20.8 Monocytes % 6.5 Eosinophils % 3.1 Basophils % 0.2 Neutrophils # 5.9 Lymphocytes # 1.8 Monocytes # 0.6 Eosinophils # 0.3 Basophils # 0.0 Urine Opiates Screen Negative Ur Buprenorphine Scrn Negative Ur Barbiturates Screen Negative Ur Phencyclidine Scrn Negative Ur Amphetamines Screen Negative U Benzodiazepines Scrn Negative Urine Cocaine Screen Negative U Marijuana (THC) Screen Negative Ur Drug Screen Interp See Below Date of admission: 12/11/18 23:11 Primary care physician: PCP NONE Consults: 12/12/18 14:38 Consult to Special Effects Artist [CONS] Routine Comment: Vaginal delivery, consult needed Discharging clinician: Radha Rubio Anticipated date of discharge: 12/13/18 - Patient Status Disposition: Home, Self-Care Condition: Good Functional capacity at discharge: independent ambulation Overall status at discharge: patient is progressing back to baseline - Discharge Instructions Follow Up With: NONE,PCP [Primary Care Provider] - - Diet and Activity Activity: resume usual activities as tolerated Diet: regular diet Hospital Course Reason for admission: induction of labor Delivery: Episiotomy: none Laceration: none Other procedures: none complications: none Discharge diagnosis: IUP at term delivered [place] baby: male Time Attestation: Total time spent providing and/or coordinating discharge services: Time Spent: Less than 30 minutes Exam - Constitutional Vitals: Temp Pulse Resp BP Pulse Ox 98.4 F 86 16 117/75 98 12/13/18 08:10 12/13/18 08:10 12/13/18 08:10 12/13/18 08:10 12/13/18 08:10 General appearance IM: A&O X 3, pleasant, no acute distress, answers questions appropriately - Respiratory Respiratory exam: Present: CTAB. Absent: respiratory distress - Cardiovascular Cardiovascular exam IM: Present: RRR, +S1, +S2. Absent: irregular rhythm - GI/Abdominal GI/Abdominal exam IM: normal bowel sounds, soft - Rectal Rectal exam: deferred - External exam: normal external exam Uterine Tone: Firm Uterus Position: At Umbilicus, Midline - Extremities Exam Extremities exam IM: Present: full ROM, normal capillary refill, normal inspection. Absent: calf tenderness - Neurological Exam Neurological exam: alert, normal gait, oriented X3
== END 2018-12-13 16:45 | disposition home or self-care (01) | DRG 807 ==
LOC: 1NENULAB 23:11 → 1NENUOBS 12-12 13:28
PROVIDERS: ADMIT Obstetrics & Gynecology; ATTEND Obstetrics & Gynecology